=== PATIENT | male | born 1985 | race Caucasian/White ===

== ENCOUNTER 2019-02-12 05:50 | Emergency (ER) | payer BC ==
[~2019-02-12] VITALS: Ht 182.9 cm; Wt 95.3 kg
[~2019-02-12 05:50] MED LIST: NAPROSYN500 MG PO; NOHOMEMEDICATIONS
[2019-02-12 06:54] LABS: HEMATOCRIT 42.9 % (42.0-52.0); HEMOGLOBIN 15.1 gm/dL (14.0-18.0); MCH 30.7 pg (26.0-34.0); MCHC 35.2 g/dL (28.0-37.0); MCV 87.1 fL (80.0-100.0); RBC 4.93 mil/uL (4.50-6.00); RDW 12.7 % (10.5-14.5); WBC 7.7 thou/uL (4.0-11.0)
[2019-02-12 06:58] LABS: CALCIUM 9.3 mg/dL (8.5-10.1); CREATININE 1.1 mg/dL (0.7-1.3); POTASSIUM 4.1 mmol/L (3.5-5.1)
[2019-02-12 08:47] VITALS: BP 140/58
== END 2019-02-12 08:55 | disposition home or self-care (01) ==
LOC: ER 05:50
PROVIDERS: Emergency Medicine
DX: M54.89 Other dorsalgia (principal)